=== PATIENT | female | born 1975 | race Caucasian/White ===

== ENCOUNTER 2019-05-07 13:40 | Emergency (ER) | payer OTHER ==
[~2019-05-07] VITALS: Ht 157.5 cm; Wt 82.1 kg
[2019-05-07 14:02] VITALS: Ht 157.5 cm; Wt 82.1 kg
[2019-05-07 15:04] LABS: BASOPHIL % 0.4 % (0-2); PLATELET COUNT 341 x10^3mcL (130-400)
[2019-05-07 15:08] LABS: CALCIUM 9.6 mg/dL (8.5-10.1); CARBON DIOXIDE 27.3 mmol/L (21-32); CHLORIDE SERUM 103 mmol/L (98-107); CREATININE SERUM 0.6 mg/dL (0.6-1.0); GFR1 > 60 mL/min; GLUCOSE SERUM 102 mg/dL (74-106); POTASSIUM SERUM 3.9 mmol/L (3.5-5.1); SODIUM SERUM 139 mmol/L (136-145)
[2019-05-07 17:43] VITALS: BP 129/72
== END 2019-05-07 17:44 | disposition home or self-care (01) ==
LOC: ED 13:40
PROVIDERS: Student in an Organized Health Care Education/Training Program
DX: R51 Headache (principal); H53.8 Other visual disturbances
CPT/HCPCS: J0780; J7030